=== PATIENT | male | born 1990 | race Caucasian/White ===

== ENCOUNTER → 2020-11-12 | Outpatient (CLI) | payer OTHER ==
[~2020-11-12] MED LIST: NKHM; Vicodin 5/500 505 MG PO; ZYRTEC10 MG PO
== END | disposition home or self-care (01) ==
LOC: COVID19 16:22
PROVIDERS: ATTEND Internal Medicine
DX: Z11.52 Encounter for screening for COVID-19 (principal); Z20.822 Contact with and (suspected) exposure to COVID-19